=== PATIENT | male | born 1945 | race Caucasian/White ===

== ENCOUNTER → 2018-04-12 12:58 | Outpatient (CLI) | payer MEDICARE, OTHER, SELFPAY ==
[2018-04-12 13:57] LABS: Add Manual Diff / Slide Review NO; Basophils Percent Auto 0.7 % (0-2); Eosinophils Percent Auto 0.9 % (2-4); Hematocrit 29.3 % (41-53); Hemoglobin 9.8 g/dL (13.5-17.5); Lymphocytes Percent Auto 15.3 % (25-40); Mean Corpuscular HGB Conc 33.4 % (30-36); Mean Corpuscular Hemoglobin 30.1 PG (26-34); Mean Corpuscular Volume 90.2 fL (80-100); Monocytes Percent Auto 8.9 % (3-14); Neutrophils Absolute Auto 7500 /uL (3000-5900); Neutrophils Percent Auto 74.2 % (50-75); Platelet Count 211 X10^3/uL (150-400); Red Blood Cell Count 3.25 X10^6/uL (4.5-5.9); Red Cell Distribution Width 15.7 % (11.6-14.8); White Blood Cell Count 10.1 X10^3/uL (4.5-11.0)
[2018-04-12 15:05] LABS: Alanine Aminotransferase 36 IU/L (21-72); Albumin 3.7 g/dL (3.5-5.0); Albumin Globulin Ratio 1.2 (1.0-2.8); Alkaline Phosphatase 55 U/L (38-126); Aspartate Aminotransferase 21 IU/L (17-59); BUN Creatinine Ratio 25.5 (6-22); Bilirubin Total 0.7 mg/dL (0.2-1.3); Blood Urea Nitrogen 51 mg/dL (9-20); Calcium 9.1 mg/dL (8.4-10.2); Carbon Dioxide 24 mmol/L (22-32); Chloride 100 mmol/L (98-107); Estimated Glomerular Filt Rate 33.2 mL/min (>60); Glucose 118 mg/dL (80-110); HEMOLYSIS < 15 (0-50); Potassium 4.4 mmol/L (3.4-5.1); Sodium 141 mmol/L (137-145); Total Protein 6.7 g/dL (6.3-8.2)
== END ==
PROVIDERS: PCP Internal Medicine; Visit Provider Nurse Practitioner Acute Care
DX: I25.5 Ischemic cardiomyopathy (principal)
CPT/HCPCS: 36415; 80053; 83880; 85025

== ENCOUNTER → 2018-04-23 14:10 | Outpatient (CLI) | payer MEDICARE, OTHER, SELFPAY ==
[2018-04-23 14:54] LABS: Add Manual Diff / Slide Review NO; Basophils Percent Auto 0.4 % (0-2); Eosinophils Percent Auto 0.6 % (2-4); Hematocrit 32.9 % (41-53); Hemoglobin 10.6 g/dL (13.5-17.5); Lymphocytes Percent Auto 14.7 % (25-40); Mean Corpuscular HGB Conc 32.3 % (30-36); Mean Corpuscular Hemoglobin 29.3 PG (26-34); Mean Corpuscular Volume 90.9 fL (80-100); Monocytes Percent Auto 9.8 % (3-14); Neutrophils Absolute Auto 7000 /uL (1500-7000); Neutrophils Percent Auto 74.5 % (50-75); Platelet Count 228 X10^3/uL (150-400); Red Blood Cell Count 3.62 X10^6/uL (4.5-5.9); Red Cell Distribution Width 16.7 % (11.6-14.8); White Blood Cell Count 9.4 X10^3/uL (4.5-11.0)
[2018-04-23 15:43] LABS: Alanine Aminotransferase 97 IU/L (21-72); Albumin 3.6 g/dL (3.5-5.0); Albumin Globulin Ratio 1.2 (1.0-2.8); Alkaline Phosphatase 89 U/L (38-126); Aspartate Aminotransferase 55 IU/L (17-59); BUN Creatinine Ratio 21.8 (6-22); Bilirubin Total 1.5 mg/dL (0.2-1.3); Blood Urea Nitrogen 37 mg/dL (9-20); Calcium 9.3 mg/dL (8.4-10.2); Carbon Dioxide 26 mmol/L (22-32); Chloride 97 mmol/L (98-107); Globulin 2.9 g/dL (1.7-4.1); Glucose 98 mg/dL (80-110); HEMOLYSIS < 15 (0-50); Potassium 3.7 mmol/L (3.4-5.1); Sodium 139 mmol/L (137-145); Total Protein 6.5 g/dL (6.3-8.2)
== END ==
PROVIDERS: Family Provider Internal Medicine; PCP Internal Medicine; Visit Provider Nurse Practitioner Acute Care
DX: I25.5 Ischemic cardiomyopathy (principal)
CPT/HCPCS: 36415; 80053; 83880; 85025

== ENCOUNTER → 2018-05-04 12:35 | Outpatient (CLI) | payer MEDICARE, OTHER, SELFPAY ==
[2018-05-04 13:46] LABS: BUN Creatinine Ratio 29.1 (6-22); Blood Urea Nitrogen 67 mg/dL (9-20); Calcium 8.7 mg/dL (8.4-10.2); Carbon Dioxide 23 mmol/L (22-32); Chloride 96 mmol/L (98-107); Estimated Glomerular Filt Rate 28.3 mL/min (>60); Glucose 111 mg/dL (80-110); HEMOLYSIS < 15 (0-50); Potassium 4.8 mmol/L (3.4-5.1); Sodium 133 mmol/L (137-145)
[2018-05-04 14:11] LABS: B Type Natriuretic Peptide 3080 (<100)
== END ==
PROVIDERS: Family Provider Internal Medicine; PCP Internal Medicine; Visit Provider Internal Medicine Advanced Heart Failure and Transplant Cardiology
DX: I25.5 Ischemic cardiomyopathy (principal); R06.09 Other forms of dyspnea
CPT/HCPCS: 36415; 80048; 83880

== ENCOUNTER → 2018-06-19 14:14 | Outpatient (CLI) | payer MEDICARE, OTHER, SELFPAY ==
[2018-06-19 15:48] LABS: BUN Creatinine Ratio 13.5 (6-22); Blood Urea Nitrogen 27 mg/dL (9-20); Carbon Dioxide 24 mmol/L (22-32); Chloride 96 mmol/L (98-107); Estimated Glomerular Filt Rate 33.2 mL/min (>60); Glucose 103 mg/dL (80-110); HEMOLYSIS < 15 (0-50); Magnesium 1.8 mg/dL (1.6-2.3); Potassium 3.6 mmol/L (3.4-5.1); Sodium 136 mmol/L (137-145)
== END ==
PROVIDERS: PCP Internal Medicine; Visit Provider Internal Medicine
DX: I25.10 Atherosclerotic heart disease of native coronary artery without angina pectoris (principal); I50.9 Heart failure, unspecified
CPT/HCPCS: 36415; 80048; 83735

== ENCOUNTER → 2018-06-26 15:19 | Outpatient (CLI) | payer MEDICARE, OTHER, SELFPAY ==
[2018-06-26 16:32] LABS: BUN Creatinine Ratio 16.1 (6-22); Blood Urea Nitrogen 29 mg/dL (9-20); Carbon Dioxide 24 mmol/L (22-32); Chloride 99 mmol/L (98-107); Estimated Glomerular Filt Rate 37.5 mL/min (>60); Glucose 112 mg/dL (80-110); HEMOLYSIS < 15 (0-50); Potassium 3.7 mmol/L (3.4-5.1); Sodium 137 mmol/L (137-145)
== END ==
PROVIDERS: PCP Internal Medicine; Visit Provider Registered Nurse
DX: I42.9 Cardiomyopathy, unspecified (principal)
CPT/HCPCS: 36415; 80048

== ENCOUNTER 2018-07-03 11:30 | Outpatient (RCR) | payer MEDICARE, OTHER, SELFPAY | END 2018-07-03 14:33 | LOC: CAR 11:30 | PROVIDERS: Family Provider Internal Medicine; PCP Internal Medicine; Visit Provider Internal Medicine Cardiovascular Disease | DX: I21.3 ST elevation (STEMI) myocardial infarction of unspecified site (principal) | CPT/HCPCS: 93798 ==

== ENCOUNTER → 2018-10-30 15:05 | Outpatient (ROUT) | payer MEDICARE, OTHER, SELFPAY ==
[2018-10-30 15:27] LABS: BUN Creatinine Ratio 21.1 (6-22); Blood Urea Nitrogen 57 mg/dL (9-20); Carbon Dioxide 26 mmol/L (22-32); Chloride 91 mmol/L (98-107); Estimated Glomerular Filt Rate 23.4 mL/min (>60); Glucose 90 mg/dL (80-110); HEMOLYSIS < 15 (0-50); Potassium 4.1 mmol/L (3.4-5.1); Sodium 131 mmol/L (137-145)
[2018-10-30 15:49] LABS: Add Manual Diff / Slide Review NO; Basophils Absolute Auto 0 /uL (0-100); Basophils Percent Auto 0.7 % (0-2); Eosinophils Absolute Auto 100 /uL (0-450); Eosinophils Percent Auto 1.1 % (2-4); Hematocrit 27.2 % (41-53); Lymphocytes Absolute Auto 700 /uL (1100-4500); Mean Corpuscular HGB Conc 33.3 % (30-36); Mean Corpuscular Hemoglobin 27.1 PG (26-34); Mean Corpuscular Volume 81.4 fL (80-100); Monocytes Absolute Auto 500 /uL (0-900); Monocytes Percent Auto 9.6 % (3-14); Neutrophils Absolute Auto 4100 /uL (1500-7000); Neutrophils Percent Auto 75.6 % (50-75); Platelet Count 174 X10^3/uL (150-400); Red Blood Cell Count 3.34 X10^6/uL (4.5-5.9); Red Cell Distribution Width 28.1 % (11.6-14.8); White Blood Cell Count 5.5 X10^3/uL (4.5-11.0)
[2018-10-30 16:25] LABS: Acanthocytes 1+; Anisocytosis 1+; Hypochromasia 1+; Poikilocytosis 2+; Polychromasia 1+
== END ==
PROVIDERS: PCP Internal Medicine; Visit Provider Internal Medicine Advanced Heart Failure and Transplant Cardiology
DX: I25.9 Chronic ischemic heart disease, unspecified (principal); I25.10 Atherosclerotic heart disease of native coronary artery without angina pectoris
CPT/HCPCS: 80048; 85025

== ENCOUNTER → 2018-11-07 17:00 | Outpatient (ROUT) | payer MEDICARE, OTHER, SELFPAY ==
[2018-11-07 17:09] LABS: Add Manual Diff / Slide Review NO; Basophils Absolute Auto 0 /uL (0-100); Basophils Percent Auto 0.8 % (0-2); Eosinophils Absolute Auto 100 /uL (0-450); Eosinophils Percent Auto 1.2 % (2-4); Hemoglobin 9.1 g/dL (13.5-17.5); Lymphocytes Absolute Auto 800 /uL (1100-4500); Lymphocytes Percent Auto 11.8 % (25-40); Mean Corpuscular HGB Conc 32.7 % (30-36); Mean Corpuscular Hemoglobin 27.7 PG (26-34); Mean Corpuscular Volume 84.8 fL (80-100); Monocytes Absolute Auto 600 /uL (0-900); Neutrophils Absolute Auto 4900 /uL (1500-7000); Neutrophils Percent Auto 77.2 % (50-75); Platelet Count 134 X10^3/uL (150-400); Red Cell Distribution Width 28.6 % (11.6-14.8); White Blood Cell Count 6.4 X10^3/uL (4.5-11.0)
[2018-11-07 17:12] LABS: BUN Creatinine Ratio 22.2 (6-22); Blood Urea Nitrogen 60 mg/dL (9-20); Calcium 8.9 mg/dL (8.4-10.2); Carbon Dioxide 24 mmol/L (22-32); Chloride 93 mmol/L (98-107); Estimated Glomerular Filt Rate 23.4 mL/min (>60); Glucose 82 mg/dL (80-110); HEMOLYSIS < 15 (0-50); Potassium 5.3 mmol/L (3.4-5.1); Sodium 130 mmol/L (137-145)
[2018-11-07 17:44] LABS: Dimorphic RBC PRESENT; Hypochromasia 1+
[2018-11-07 17:45] LABS: Acanthocytes 1+; Anisocytosis 2+; Macrocytosis 1+; Microcytosis 1+; Ovalocytes 1+; Schistocytes 1+
== END ==
PROVIDERS: PCP Internal Medicine; Visit Provider Internal Medicine Advanced Heart Failure and Transplant Cardiology
DX: I50.9 Heart failure, unspecified (principal); I25.10 Atherosclerotic heart disease of native coronary artery without angina pectoris
CPT/HCPCS: 80048; 85025

== ENCOUNTER → 2018-12-14 12:34 | Outpatient (CLI) | payer MEDICARE, OTHER, SELFPAY ==
[2018-12-14 13:17] LABS: Prothrombin Time 23.5 SECONDS (10.1-12.7)
== END ==
PROVIDERS: Family Provider Internal Medicine; PCP Internal Medicine; Visit Provider Pharmacist
DX: Z79.01 Long term (current) use of anticoagulants (principal)
CPT/HCPCS: 36415; 85610